=== PATIENT | male | born 1990 | race African-American/Black ===

== ENCOUNTER 2024-11-01 10:25 | Emergency (ER) | payer MEDICAID, OTHER ==
[~2024-11-01] VITALS: Ht 185.4 cm; Wt 61.1 kg
--- NOTE | 2024-11-01 10:43 | ED.PDOC ---
Back pain HPI HPI Comments 33M presents to the ER w/ no prior MHx associated to the c/c of UE pain. Pt reports that he was "angry" this morning and hit a chair w/ his right hand, swelling and leaving 2 puncture wounds on the meta carpal bones #2. Social Hx of Occasional alohol use,/MJ use. Denies chills, fever, N/V/D, SOB, CP. Chief Complaint: Upper Extremity Time Seen by MD: 10:30 Reviewed Notes: Nurses Notes, Medications, Allergies Allergies: Coded Allergies: NO KNOWN ALLERGIES (Unverified , 11/01/24) Information Source: Patient Mode of Arrival: Ambulatory Timing: Hours Duration: Since onset Location of Back pain: Other (right hand) Severity: Moderate Prehospital treatment: None Quality: Aching Onset: Blunt Trauma Circumstance: Altercation History of: None Associated signs and symptoms: None Past Medical History PAST MEDICAL HISTORY: Denies Surgical History: Denies all surgeries Family History Family History: Reviewed,noncontributory to illness, Unknown Social History Smoker: Non-Smoker Alcohol: Occasionally Drugs: Marijuana Lives In: Home Constitutional: denies: chills, diaphoresis, fatigue, fever, malaise, sweats, weakness, others EENTM: denies: blurred vision, double vision, ear bleeding, ear discharge, ear drainage, ear pain, ear ringing, eye pain, eye redness, hearing loss, mouth pain, mouth swelling, nasal discharge, nose bleeding, nose congestion, nose pain, photophobia, tearing, throat pain, throat swelling, voice changes, others Respiratory: denies: cough, hemoptysis, orthopnea, SOB at rest, shortness of breath, SOB with excertion, stridor, wheezing, others Cardiovascular: denies: chest pain, dizzy spells, diaphoresis, Dyspnea on exertion, edema, irregular heart beat, left arm pain, lightheadedness, palpitations, PND, syncope, others Gastrointestinal: denies: abdomen distended, abdominal pain, blood streaked bowels, constipated, diarrhea, dysphagia, difficulty swallowing, hematemesis, melena, nausea, poor appetite, poor fluid intake, rectal bleeding, rectal pain, vomiting, others Genitourinary: denies: burning, dysuria, flank pain, frequency, hematuria, incontinence, penile discharge, penile sore, pain, testicle pain, testicle swelling, urgency, others Neurological: denies: dizziness, fainting, headache, left sided numbness, left sided weakness, numbness, paresthesia, pre-existing deficit, right sided numbness, right sided weakness, seizure, speech problems, tingling, tremors, weakness, others Musculoskeletal: reports: others (swelling/puncture wound on the right hand); denies: back pain, gout, joint pain, joint swelling, muscle pain, muscle stiffness, neck pain Integumetry: denies: bruises, change in color, change in hair/nails, dryness, laceration, lesions, lumps, rash, wounds, others Allergic/Immunocompromised: denies: Difficulty Healing, Frequent Infections, Hives, Itching, others Hematologic/Lymphatic: denies: anemia, blood clots, easy bleeding, easy bruising, swollen glands, others Endocrine: denies: excessive hunger, excessive sweating, excessive thirst, excessive urination, flushing, intolerance to cold, intolerance to heat, unexplained weight gain, unexplained weight loss, others Psychiatric: denies: anxiety, bipolar disorder, depression, hopeless, panic disorder, schizophrenia, sleepless, suicidal, others All Other Systems: Reviewed and Negative Physical Exam General Appearance: Moderate Distress, Thin HEENT: Normal ENT Inspection, PERRL/EOMI, Pharynx Normal, TMs Normal Neck: Full Range of Motion, Non-Tender, Normal, Normal Inspection Respiratory: Chest Non-Tender, Lungs Clear, No Accessory Muscle Use, No Re spiratory Distress, Normal Breath Sounds Cardiovascular: No Edema, No JVD, No Murmur, No Gallop, Normal Peripheral Pulses, Regular Rate/Rhythm Breast Exam: Deferred Gastrointestinal: No Organomegaly, Non Tender, No Pulsatile Mass, Normal Bowel Sounds, Soft Genitalia: Deferred Pelvic: Deferred Rectal: Deferred Extremities: No calf tenderness, Normal capillary refill, Normal inspection, Normal range of motion, Non-tender, No pedal edema Musculoskeletal : Location: Right Extremity Location: Hand Apperance: Swelling, Deformity, Limited ROM, Tenderness: Moderate, Other (With a puncture wound on top of the 3rd knuckle) Neurologic: Alert, promotion manager II-XII nml as Tested, No Motor Deficits, Normal Affect, Normal Mood, No Sensory Deficits Cerebellar Function: Normal Reflexes: Normal Skin: Dry, Normal Color, Warm Peripheral Pulses: 1+ carotid (R), 1+ carotid (L) Lymphatic: No Adenopathy Was a procedure done? Was a procedure done?: No Back Pain Differential Dx Differential Diagnosis: Fracture, Musculoskeletal Pain X-Ray, Labs, Meds, VS Vital Signs Date Time Temp Pulse Resp B/P (MAP) Pulse Ox O2 Delivery O2 Flow Rate FiO2 11/01/24 11:40 89 17 98 Room Air 0 11/01/24 10:26 99.0 91 20 119/72 (88) 99 99.0 Current Medications Medications (Trade) Dose Ordered Sig/Mihai Route Start Time Stop Time Status Last Admin Diphtheria/ Tetanus/Acell Pertussis (Boostrix T-Dap) 0.5 ml ONCE ONCE IM 11/01/24 10:45 11/01/24 10:46 DC 11/01/24 11:36 Ketorolac Tromethamine (Toradol Injection) 60 mg ONCE ONCE IM 11/01/24 11:30 11/01/24 11:31 DC 11/01/24 11:36 X-Ray, Labs, Meds, VS Comment Course in the emergency department patient came in with a head injury after boxing chair There is small puncture wound of the 3rd knuckle which is cleaned and and Band- Aid The x-ray shows fracture of the 2nd and no foreign body Patient will be discharged with a splint Time of 1ST Reevaluation: 11:00 Reevaluation 1ST: Unchanged Patient Education/Counseling: Diagnosis, Treatment, Prognosis Family Education/Counseling: No Family Present SEPSIS Sepsis Screen Physician Orders Apply Sling (11/01/24 11:27) R Hand 3 View Xray (11/01/24 13:02) Vital Signs Date Time Temp Pulse Resp B/P (MAP) Pulse Ox O2 Delivery O2 Flow Rate FiO2 11/01/24 11:40 89 17 98 Room Air 0 11/01/24 10:26 99.0 91 20 119/72 (88) 99 99.0 Medications Medications Dose Ordered Sig/Mihai Route Start Time Stop Time Status Last Admin Dose Admin Diphtheria/ Tetanus/Acell Pertussis 0.5 ml ONCE ONCE IM 11/01/24 10:45 11/01/24 10:46 DC 11/01/24 11:36 Ketorolac Tromethamine 60 mg ONCE ONCE IM 11/01/24 11:30 11/01/24 11:31 DC 11/01/24 11:36 Departure 1 Departure Time of Disposition: 14:35 Impression: Primary Impression: Injury of right hand Qualified Codes: S69.91XA - Unspecified injury of right wrist, hand and finger(s), initial encounter Additional Impression: Fracture of second metacarpal bone of right hand Qualified Codes: S62.360B - Nondisplaced fracture of neck of second metacarpal bone, right hand, initial encounter for open fracture Disposition: HOME / SELF CARE / HOMELESS Condition: Fair Additional Instructions: Follow up with your PCP e-Prescriptions Naproxen (Naproxen) 375 Mg Tab 375 MG PO TID for 10 Days, #30 TAB Prov: SERGEY TELLEZ MD 11/01/24 Discharged With: Self Critical Care Note Critical Care Time?: No Stability Stability form required: No Heart Score Heart Score: Heart Score Response (Comments) Value History N/A 0 EKG N/A 0 Age <45 0 Risk Factors No known risk factors 0 Troponin N/A 0 Total 0 I personally scribed for SERGEY TELLEZ MD ([email or web address]) on 11/01/24 at 10:43. Electronically submitted by Ishmael Green ([email or web address]). SERGEY TELLEZ MD Nov 01, 2024 10:43
[2024-11-01] MEDS: KETOROLAC TROMETH 60MG/2ML VIAL IM ONE (11:36)
[2024-11-01] MEDS: TETANUS-DIPTH-ACEL PERTUSSIS 0.5ML SYR Tdap IM ONE (11:36)
--- NOTE | 2024-11-01 13:42 | DVH ---
CLINICAL INDICATION: Injury TECHNIQUE: 3 radiographic views of the right hand were obtained. Comparison: None FINDINGS/IMPRESSION: Minimally displaced fracture distal aspect 2nd metacarpal. Remainder of the bony structures are intact normal alignment. There are no radiopaque foreign bodies. HS:Y
[2024-11-01] MEDS ORDERED: NAPR-957 PO (14:38)
[2024-11-01 14:42] VITALS: BP 113/63; PULSE 60; RESP 18; TEMP 97.6; O2SAT 98
[2024-11-01] MEDS: HYDROcodone-ACET 5/325MG TAB PO ONE (14:54)
== END 2024-11-01 15:00 | disposition home or self-care (01) ==
LOC: ER 10:25
DX: S62.36 Nondisplaced fracture of neck of other metacarpal bone (principal); W22.03XA Walked into furniture, initial encounter; Y93.89 Activity, other specified; Y92.89 Other specified places as the place of occurrence of the external cause; Y99.8 Other external cause status
CPT/HCPCS: 29125; 73130; 90471; 90715; 96372; 99284; J1885